=== PATIENT | male | born 1970 | race Caucasian/White ===

== ENCOUNTER → 2020-05-04 08:35 | Outpatient (BNVA) | payer SELFPAY | PROVIDERS: PCP Hospitalist; Visit Provider Physician Assistant Medical ==

== ENCOUNTER → 2022-05-10 10:35 | Outpatient (BNVA) | payer SELFPAY | PROVIDERS: PCP Hospitalist; Visit Provider Physician Assistant | DX: Z02.79 Encounter for issue of other medical certificate (principal) ==